=== PATIENT | male | born 1950 | race Hispanic/Latino ===

== ENCOUNTER 2021-03-28 12:31 | Emergency (ER) | payer OTHER ==
[~2021-03-28] VITALS: Ht 167.6 cm; Wt 79.4 kg
[~2021-03-28 12:31] MED LIST: COREG CR20 MG PO; LIPITOR20 MG PO; VERAPAMIL ER240 M1 PO
== END 2021-03-28 13:55 | disposition home or self-care (01) ==
LOC: ED 12:31
DX: S83.91XA Sprain of unspecified site of right knee, initial encounter (principal); X50.9XXA Other and unspecified overexertion or strenuous movements or postures, initial encounter; Y99.0 Civilian activity done for income or pay; I10 Essential (primary) hypertension; Z79.899 Other long term (current) drug therapy
CPT/HCPCS: 73560; 99283-25

== ENCOUNTER 2021-04-16 18:35 | Emergency (ER) | payer OTHER ==
[~2021-04-16] VITALS: Ht 167.6 cm; Wt 79.4 kg
--- OUTSIDE RECORDS SUMMARY | 2021-04-16 18:44 | XMS ---
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 Jacy has no Care Guidelines for this patient. Jessica V[facility]IT COUNT (12 MO.) [facility] NOTE: Visits indicate total known visits. ED/C VISIT TRACKING (12 MO.) [facility] 18[facility] COMPLAINT: - COUGH 03/28/2021 12:[address] [facility] [place] TYPE: Emergency COMPLAINT: - R KNEE INJURY DIAGNOSES: - Other and unspecified overexertion or strenuous movements or postures, initial encounter - Essential (primary) hypertension - Pain in right knee - Other termite treater (current) drug therapy - Civilian activity done for income or pay - Sprain of unspecified site of right knee, initial encounter INPATIENT VISIT TRACKING (12 MO.) No inpatient visits to display in this time frame [email or web address]
--- NOTE | 2021-04-17 19:16 | EKG ---
[facility] [address] [place], [place] [address] Signed Normal sinus rhythm Moderate voltage criteria for LVH, may be normal variant ST elevation, consider early repolarization, pericarditis, or injury Prolonged QT Abnormal ECG No previous ECGs available Confirmed by JASS SHER DO ([id number]) on 04/17/2021 7:16:03 PM Electronically Signed By: JASS SHER DO 04/17/21 1916 PATIENT NAME: URIELELLE NIRMAL Electrocardiogram DATE OF : 52 PHYSICIAN: JASS SHER DO REPORT #: [id number] REPORT IS CONFIDENTIAL AND NOT TO BE RELEASED WITHOUT AUTHORIZATION
== END 2021-04-16 22:37 | disposition short-term general hospital (02) ==
LOC: ED 18:35
DX: U07.1 COVID-19 (principal); J12.82 Pneumonia due to coronavirus disease 2019; R09.02 Hypoxemia; I10 Essential (primary) hypertension; E78.00 Pure hypercholesterolemia, unspecified; Z79.899 Other long term (current) drug therapy
CPT/HCPCS: 36600; 71045; 80053; 82803; 83605; 84484; 85025; 87040; 93005; 93010; 94660; 96374; 99285-25; C9803; J1100; U0003

== ENCOUNTER 2022-09-18 02:01 | Emergency (ER) | payer MEDICARE ==
[~2022-09-18] VITALS: Ht 167.6 cm; Wt 87.0 kg
[2022-09-18] MEDS ORDERED: AMOX TR-K CLV1 EAC1 PO (03:45)
== END 2022-09-18 04:00 | disposition home or self-care (01) ==
LOC: ED 02:01
DX: S01.511A Laceration without foreign body of lip, initial encounter (principal); I10 Essential (primary) hypertension; Z23 Encounter for immunization; Z79.899 Other long term (current) drug therapy; W19.XXXA Unspecified fall, initial encounter
CPT/HCPCS: 12013; 36415; 70450; 70486; 72125; 80053; 85025; 90471; 90715; 99284-25; G0480